=== PATIENT | male | born 1960 | race Caucasian/White ===

== ENCOUNTER → 2020-10-06 13:00 | Outpatient (CLI) | payer OTHER, SELFPAY ==
--- NOTE | ~2020-10-06 | XR_ITS ---
EXAMINATION: XR knee LT 3V DATE: 10/06/2020 13:25 INDICATION: Left knee pain. TECHNIQUE: 3 views of left knee standing were obtained. COMPARISON: None. FINDINGS: Bone alignment is normal. No fracture. There is moderate osteoarthritis of medial compartme nt and mild osteoarthritis of lateral and patellofemoral compartments. No knee joint effusion. IMPRESSION: 1. Moderate left knee osteoarthritis. Reviewed, dictated and finalized at location B.
--- NOTE | ~2020-10-06 | XR_ITS ---
EXAMINATION: XR knee RT 3V DATE: 10/06/2020 13:26 INDICATION: Right knee pain. TECHNIQUE: 3 views of right knee standing were obtained. COMPARISON: None. FINDINGS: Bone alignment is normal. No fracture. There is moderate osteoarthritis of medial compartme nt and mild osteoarthritis of lateral and patellofemoral compartments. No knee joint effusion. IMPRESSION: 1. Moderate right knee osteoarthritis. Reviewed, dictated and finalized at location B.
== END ==
PROVIDERS: PCP Family Medicine; Visit Provider Family Medicine
DX: M17.0 Bilateral primary osteoarthritis of knee (principal)
CPT/HCPCS: 73562

== ENCOUNTER 2023-01-29 14:59 | Outpatient (CLI) | payer OTHER, SELFPAY ==
[2023-01-29 16:32] LABS: Basophils Absolute Auto 0.1 K/mm3 (0.0-0.1); Basophils Percent Auto 0.7 % (0.2-1.2); Eosinophils Absolute Auto 0.3 K/mm3 (0-0.3); Eosinophils Percent Auto 2.8 % (0-4.4); Hematocrit 44.1 % (42.0-52.0); Hemoglobin 14.4 g/dL (14.0-18.0); Immature Granulocyte Absolute 0.02 K/mm3 (0.00-0.031); Immature Granulocyte Percent A 0.2 % (0-0.5); Lymphocytes Absolute Auto 2.53 K/mm3 (0.9-3.2); Lymphocytes Percent Auto 28.6 % (18.3-44.2); Mean Corpuscular HGB Conc 32.7 g/dl (32-36); Mean Corpuscular Hemoglobin 31.3 pg (26-34); Mean Corpuscular Volume 95.9 fl (80-100); Mean Platelet Volume 9.6 fl (7.4-10.4); Monocytes Absolute Auto 0.7 K/mm3 (0.1-0.6); Monocytes Percent Auto 7.5 % (2.6-8.5); Neutrophils Absolute Auto 5.3 K/mm3 (1.3-6.7); Neutrophils Percent Auto 60.2 % (45.5-73.1); Platelet Count Result 305 k/mm3 (150-375); Red Cell Distribution Width 12.1 % (11.5-14.5); White Blood Count 8.9 K/mm3 (4.5-10.0)
[2023-01-29 16:49] LABS: Alanine Aminotransferase 20 U/L (6-50); Albumin Level 4.5 g/dL (3.5-5.1); Alkaline Phosphatase 57 U/L (38-126); Anion Gap 4 mmol/L (8-16); Aspartate Amino Transferase 56 U/L (17-59); Bilirubin,Total 0.9 mg/dL (0.2-1.3); Blood Urea Nitrogen 15 mg/dL (9-20); Carbon Dioxide 33 mmol/L (22-30); Chloride 101 mmol/L (98-107); Cholesterol 204 mg/dL (0-200); Estimated Glomerular Filt Rate > 60; Glucose 103 mg/dL (65-110); HDL Direct 47 mg/dL; Potassium 4.5 mmol/L (3.4-5.0); Sodium 138 mmol/L (137-145); Triglycerides 123 mg/dL (<150)
[2023-01-29 16:50] LABS: Appearance Urine Clear (Clear); Bacteria Urine None Seen /hpf; Bilirubin Urine Negative (Negative); Blood Urine Negative (Negative); Color Urine Yellow (Yellow); Glucose Urine UA Negative (Negative); Ketones Urine 1+ mg/dL (Negative); Leukocyte Esterase Ur Trace LEU/UL (Negative); Nitrate Urine Negative (Negative); Non Pathogenic Casts 0-2; Protein Urine Negative (Negative); RBC Urine 0-2 /hpf (0-2); Specific Grav Ur 1.028 (1.001-1.035); Squamous Epithelial Cell Urine None seen /hpf (Few); WBC Urine 0-5 /hpf
[2023-01-29 16:51] LABS: Add Urine Microscopic? YES
[2023-01-29 17:04] LABS: LDL Cholesterol Direct 115 mg/dL
[2023-01-29 17:24] LABS: Thyroid Stimulating Hormone Reflex 0.552 uIU/mL (0.465-4.68)
[2023-01-29 17:59] LABS: Vitamin B12 > 1000.0 pg/mL (239-931)
[2023-01-29 19:16] LABS: Hemoglobin A1C 5.4 % (<5.7)
[2023-01-30 16:39] LABS: Vitamin D 25 Hydroxy 56.1 ng/mL
[2023-01-30 17:40] LABS: Prostate Specific Antigen 1.3 ng/mL (< OR = 4.0)
== END 2023-01-29 15:00 | disposition home or self-care (01) ==
LOC: ANHGOSHLAB 15:00
PROVIDERS: PCP Family Medicine; Visit Provider Family Medicine
DX: Z00.00 Encounter for general adult medical examination without abnormal findings (principal); R20.0 Anesthesia of skin; R20.2 Paresthesia of skin; E78.5 Hyperlipidemia, unspecified; E55.9 Vitamin D deficiency, unspecified; Z12.5 Encounter for screening for malignant neoplasm of prostate; E73.9 Lactose intolerance, unspecified; Z13.29 Encounter for screening for other suspected endocrine disorder; E53.8 Deficiency of other specified B group vitamins; R31.9 Hematuria, unspecified
CPT/HCPCS: 36415; 80053; 80061; 81001; 82306; 82607; 83036; 84153; 84443; 85025; G0103

== ENCOUNTER 2023-02-12 13:52 | Outpatient (CLI) | payer OTHER, SELFPAY ==
--- NOTE | 2023-02-12 14:14 | ECG_ITS ---
Measurements Intervals Dexter Rate: 64 P: 63 [place]: 165 QRS: -27 QRSD: 94 T: 68 QT: 411 QTc: 424 Interpretive Statements SINUS RHYTHM BORDERLINE LEFT AXIS DEVIATION [QRS AXIS < -20] POSSIBLE RIGHT VENTRICULAR CONDUCTION DELAY [RSR (QR) IN V1/V2] NO PREVIOUS ECG AVAILABLE FOR COMPARISON Electronically Signed On 02-12-2023 15:52:17 CDT by Glenna Ames M.D.
== END 2023-02-12 13:53 | disposition home or self-care (01) ==
LOC: ANHLAB 13:55 → ANHCARD 13:58
PROVIDERS: PCP Family Medicine; Referring Provider Podiatrist Foot & Ankle Surgery; Visit Provider Family Medicine
DX: Z01.810 Encounter for preprocedural cardiovascular examination (principal)
CPT/HCPCS: 93005

== ENCOUNTER 2024-02-05 10:36 | Outpatient (CLI) | payer OTHER, SELFPAY ==
[2024-02-05 14:13] LABS: Add Urine Microscopic? NO; Appearance Urine Clear (Clear); Basophils Absolute Auto 0.1 K/mm3 (0.0-0.1); Basophils Percent Auto 0.7 % (0.2-1.2); Bilirubin Urine Negative (Negative); Blood Urine Negative (Negative); Color Urine Yellow (Yellow); Eosinophils Absolute Auto 0.2 K/mm3 (0-0.3); Eosinophils Percent Auto 2.5 % (0-4.4); Glucose Urine UA Negative (Negative); Hemoglobin 14.8 g/dL (14.0-18.0); Immature Granulocyte Absolute 0.02 K/mm3 (0.00-0.031); Immature Granulocyte Percent A 0.3 % (0-0.5); Ketones Urine Negative (Negative); Leukocyte Esterase Ur Negative LEU/UL (Negative); Lymphocytes Absolute Auto 2.55 K/mm3 (0.9-3.2); Lymphocytes Percent Auto 33.2 % (18.3-44.2); Mean Corpuscular HGB Conc 32.2 g/dl (32-36); Mean Corpuscular Volume 96.4 fl (80-100); Mean Platelet Volume 9.8 fl (7.4-10.4); Monocytes Absolute Auto 0.7 K/mm3 (0.1-0.6); Monocytes Percent Auto 9.4 % (2.6-8.5); Neutrophils Absolute Auto 4.2 K/mm3 (1.3-6.7); Neutrophils Percent Auto 53.9 % (45.5-73.1); Nitrate Urine Negative (Negative); Platelet Count Result 311 k/mm3 (150-375); Protein Urine Negative (Negative); Red Blood Count 4.77 M/mm3 (4.6-6.20); Red Cell Distribution Width 12.2 % (11.5-14.5); Specific Grav Ur 1.012 (1.001-1.035); Urobilinogen Urine 0.2 mg/dL (<2.0); White Blood Count 7.7 K/mm3 (4.5-10.0); pH Urine 5.5 (5.0-9.0)
[2024-02-05 14:20] LABS: Alanine Aminotransferase 21 U/L (6-50); Albumin Level 4.6 g/dL (3.5-5.1); Alkaline Phosphatase 65 U/L (38-126); Anion Gap 7 mmol/L (4-12); Aspartate Amino Transferase 65 U/L (17-59); Bilirubin,Total 0.8 mg/dL (0.2-1.3); Blood Urea Nitrogen 20 mg/dL (9-20); Calcium 9.2 mg/dL (8.4-10.2); Carbon Dioxide 32 mmol/L (22-30); Chloride 100 mmol/L (98-107); Cholesterol 214 mg/dL (0-200); Estimated Glomerular Filt Rate > 60; Glucose 104 mg/dL (65-110); HDL Direct 55 mg/dL; Sodium 139 mmol/L (137-145); Triglycerides 92 mg/dL (<150)
[2024-02-05 14:32] LABS: LDL Cholesterol Direct 124 mg/dL
[2024-02-05 14:52] LABS: Vitamin D 25 Hydroxy 55.8 ng/mL
[2024-02-05 15:05] LABS: Thyroid Stimulating Hormone Reflex 0.547 uIU/mL (0.465-4.68)
[2024-02-05 15:22] LABS: Hemoglobin A1C 5.8 % (<5.7)
== END 2024-02-05 10:37 | disposition home or self-care (01) ==
LOC: ANHGOSHLAB 10:37
PROVIDERS: PCP Family Medicine; Visit Provider Family Medicine
DX: E55.9 Vitamin D deficiency, unspecified (principal); R31.9 Hematuria, unspecified; E78.5 Hyperlipidemia, unspecified; Z13.29 Encounter for screening for other suspected endocrine disorder; Z00.00 Encounter for general adult medical examination without abnormal findings; Z79.899 Other long term (current) drug therapy; R73.9 Hyperglycemia, unspecified; E53.8 Deficiency of other specified B group vitamins; Z12.5 Encounter for screening for malignant neoplasm of prostate
CPT/HCPCS: 36415; 80053; 80061; 81003; 82306; 82607; 83036; 84153; 84443; 85025; G0103

== ENCOUNTER 2024-08-05 09:22 | Outpatient (CLI) | payer OTHER, SELFPAY ==
--- OUTSIDE RECORDS SUMMARY | 2024-08-05 10:04 | XMS_ITS | Referral Summary ---
Author [place] [facility] [place] [address] Address [address] [place] [address] Care Team Providers Care Outsewer Name Role Phone Ash Jose MD Primary Care Provider [phone]- [phone] Social History Tobacco Use Types Packs/Day Years Used Date Smoking Tobacco: Never Assessed Sex and Gender Information Value Date Recorded Sex Assigned at Not on file Legal Sex Male 3:04 PM CDT Gender Identity Not on file Sexual Orientation Not on file Plan of Treatment Not on file Insurance Care Teams Outsewer Relationship Specialty Start Date End Date Ash Jose MD [address] [place] [address] PCP - General Family Medicine 11/25/17
--- OUTSIDE RECORDS SUMMARY | 2024-08-05 10:04 | XMS_ITS | Clinical Summary ---
Author Organization [facility] [place] [address] Address [address] [place] [address] Care Team Providers Care Drug Room Clerk Name Role Phone Ash Jose MD Primary Care Provider [phone]- [phone] Social History Tobacco Use Types Packs/Day Years Used Date Smoking Tobacco: Never Assessed Sex and Gender Information Value Date Recorded Sex Assigned at Not on file Legal Sex Male 3:04 PM CDT Gender Identity Not on file Sexual Orientation Not on file Plan of Treatment Not on file Insurance Member Subscriber Plan / Payer (Ef fective 2001-Present) Name:Brannon Walker Member ID:[id number] Relation to Subscriber:Self Name:Brannon Walker Subscriber ID:[id number] Payer ID:[id number] Type:[employer] HMO/PPO Address: [address] [address] Care Teams Drug Room Clerk Relationship Specialty Start Date End Date Ash Jose MD [address] [place] [address] PCP - General Family Medicine 11/25/17
[2024-08-05 19:10] LABS: Alanine Aminotransferase 20 U/L (6-50); Albumin Level 4.5 g/dL (3.5-5.1); Alkaline Phosphatase 52 U/L (38-126); Anion Gap 10 mmol/L (4-12); Aspartate Amino Transferase 35 U/L (17-59); Bilirubin,Total 0.8 mg/dL (0.2-1.3); Blood Urea Nitrogen 14 mg/dL (9-20); Calcium 9.2 mg/dL (8.4-10.2); Carbon Dioxide 29 mmol/L (22-30); Chloride 102 mmol/L (98-107); Estimated Glomerular Filt Rate > 60; Glucose 96 mg/dL (65-110); Potassium 5.2 mmol/L (3.4-5.0); Sodium 141 mmol/L (137-145)
[2024-08-05 20:55] LABS: Hemoglobin A1C 5.5 % (<5.7)
== END 2024-08-05 09:23 | disposition home or self-care (01) ==
LOC: ANHGOSHLAB 09:23
PROVIDERS: PCP Family Medicine; Visit Provider Family Medicine
DX: R74.01 Elevation of levels of liver transaminase levels (principal); R73.03 Prediabetes
CPT/HCPCS: 36415; 80053; 83036

== ENCOUNTER 2024-11-16 09:12 | Outpatient (CLI) | payer OTHER, SELFPAY ==
--- NOTE | ~2024-11-16 | XR_ITS ---
Right Knee Technique: AP, lateral, and sunrise views were obtained. Clinical History: Pain Findings: No fracture or dislocation is seen. Osseous alignment is anatomic. There is moderate degene rative change of the medial compartment. There is minimal degenerative change of the lateral and tineo llofemoral compartments. Soft tissues are unremarkable. No joint effusion is seen. Impression: Degenerative changes, as detailed above. Reviewed, dictated and finalized at location M. Impression: Degenerative changes, as detailed above.
--- NOTE | ~2024-11-16 | XR_ITS ---
Left Knee Technique: AP, lateral, and sunrise views were obtained. Clinical History: Pain Findings: No fracture or dislocation is seen. There is moderate degenerative change of the medial com partment, with probable medial compartment narrowing. There is mild degenerative change of the latera l and patellofemoral compartments.. Soft tissues are unremarkable. No joint effusion is seen. Impression: Degenerative changes, as detailed above. Reviewed, dictated and finalized at location M. Impression: Degenerative changes, as detailed above.
== END 2024-11-16 09:13 | disposition home or self-care (01) ==
LOC: GOSHIMG 09:12
PROVIDERS: PCP Orthopaedic Surgery; Visit Provider Family Medicine
DX: M17.0 Bilateral primary osteoarthritis of knee (principal)
CPT/HCPCS: 73564

== ENCOUNTER 2024-12-17 10:00 | Outpatient (RCR) | payer OTHER, SELFPAY ==
--- NOTE | 2024-11-19 14:15 | OPREHPOC ---
Outpatient Therapy Plan of Care This is a Multidisciplinary Plan of Care that may contain components documented by all disciplines (PT, OT, and ST.) PT Problem 1 PT Problem #1 Knowledge Deficit PT Goal 1 Goal / Goal Update 1. Patient to demonstrate independence with HEP for improved self-reliance of symptom management. Target Visit 5 PT Problem 2 PT Problem #2 Pain PT Goal 1 Goal / Goal Update 1. Patient to decrease subjective reports of pain to <2/10 for improved ADL tolerance. 2. Pt will report reduce morning stiffness pain Target Visit 5 PT Problem 3 PT Problem #3 Impaired Flexibility PT Goal 1 Goal / Goal Update 1. Pt will improve LE flexibility seen in an increase in hamstring length and obers test Target Visit 5 PT Problem 4 PT Problem #4 Impaired Strength PT Goal 1 Goal / Goal Update 1. - Patient will demonstrate improved strength of the bilateral hip abductors and extensors to 4+/5 on manual muscle testing in order to improve gait stability and stair negotiation. Target Visit 5
--- NOTE | 2024-11-19 14:15 | PTOPEVAL1 ---
Assessment and note entered by Terry Parsons PT Evaluation Information Assessment Status Evaluation Diagnosis Kaiser knee pain ICD-10 Condition Codes (PT) Pain in right knee M25.561,Pain in left knee M25. 562 Onset 1 month ago Subjective Information Pt states his knee stated hurting about a month ago R worse than L. Pt notes he saw his primary care and x rays showed Kaiser knee OA. Pt notes he has increased morning pain and stiffness stating his knee feels unstable at times. Pt enjoys to walk and is currently limited by knee pain. Pt would like to get started with a home exercise program. Reported Pain Level Pain Score 4: Self Report Assessment PT Clinical Summary Patient presents to physical therapy with a primary issue of increased kaiser knee pain for the last month due to knee OA. Patient demonstrates hip weakness, increased pain, decreased mobility affecting his ability to walk his dog, gait deficit, and decreased flexibility in [facility] LE that limit their ability to perform activities of daily living and functional movements. Patient will benefit from skilled physical therapy to address the above listed deficits and return to prior level of function. Home exercise program instructed and written handout provided. Plan of Care Interventions Gait Training,Hot Pack/Cold Pack,Manual Therapy, Neuro Re-education,Therapeutic Activities, Therapeutic Exercise,Other PT Services Indicated Yes Treatment Frequency and 1x week 5 visits Duration These treatments will address the objective and functional deficits as defined above. The patient will be advanced safely and appropriately in order for the patient to progress towards his/her prior level of function. Additional exercises will be introduced and as well as a comprehensive home exercise program upon discharge, if needed, ?to ensure carryover of functional gains achieved in the clinic. This treatment plan has been reviewed and agreement upon by the patient.
--- NOTE | 2024-12-17 10:51 | PTOPDC ---
Assessment and note entered by Terry Parsons, PT Evaluation Information Assessment Status Discharge Diagnosis Kaiser knee pain ICD-10 Condition Codes (PT) Pain in right knee M25.561,Pain in left knee M25. 562 Onset 1 month ago Subjective Information Pt states he feels about 50% better overall and notes intermittent when changing positions but is less constant. Pt notes he continues to have some pain and stiffness in his knees. Pt reports he wants to continue his stretching exercises at home Reported Pain Level Pain Score 2: Self Report Assessment PT Clinical Summary Patient's Kaiser knee pain has improved overall as evidenced by advancements in decreased symptoms, and increased mobility, strength, and overall functional use of the lower extremities. Plan of Care PT Services Indicated No
== END 2024-12-17 14:15 | disposition home or self-care (01) ==
LOC: ANHGOSHPT 10:00
PROVIDERS: PCP Family Medicine; Visit Provider Family Medicine
DX: M25.561 Pain in right knee (principal); M25.562 Pain in left knee; G89.29 Other chronic pain
CPT/HCPCS: 97110; 97112; 97161

== ENCOUNTER 2025-02-05 07:51 | Outpatient (CLI) | payer OTHER, SELFPAY ==
--- OUTSIDE RECORDS SUMMARY | 2025-02-05 07:54 | XMS_ITS | Clinical Summary ---
Author Organization [facility] [place] [address] Address [address] [place] [address] Care Team Providers Care Biofuels Operations Manager Name Role Phone Ash Jose MD Primary Care Provider [phone]- [phone] Social History Tobacco Use Types Packs/Day Years Used Date Smoking Tobacco: Never Assessed Sex and Gender Information Value Date Recorded Sex Assigned at Not on file Legal Sex Male 3:04 PM CDT Gender Identity Not on file Sexual Orientation Not on file Plan of Treatment Not on file Insurance Care Teams Biofuels Operations Manager Relationship Specialty Start Date End Date Ash Jose MD [address] [place] [address] PCP - General Family Medicine 11/25/17
[2025-02-05 18:06] LABS: Hematocrit 44.2 % (42.0-52.0); Hemoglobin 14.2 g/dL (14.0-18.0); Immature Granulocyte Percent A 0.1 % (0-0.5); Lymphocytes Absolute Auto 2.11 K/mm3 (0.9-3.2); Mean Corpuscular HGB Conc 32.1 g/dl (32-36); Mean Corpuscular Hemoglobin 30.5 pg (26-34); Mean Corpuscular Volume 95.1 fl (80-100); Nucleated Red Blood Cells Absolute Auto 0.000 K/mm3 (0.0-0.012); Nucleated Red Blood Cells Perc 0.0 % (0.0-0.2); Platelet Count Result 308 k/mm3 (150-375); Red Blood Count 4.65 M/mm3 (4.6-6.20); White Blood Count 6.9 K/mm3 (4.5-10.0)
[2025-02-05 18:14] LABS: Hemoglobin A1C 5.4 % (<5.7)
[2025-02-05 18:24] LABS: Alanine Aminotransferase 18 U/L (6-50); Albumin Level 4.5 g/dL (3.5-5.1); Alkaline Phosphatase 53 U/L (38-126); Anion Gap 7 mmol/L (4-12); Aspartate Amino Transferase 28 U/L (17-59); Bilirubin,Total 0.9 mg/dL (0.2-1.3); Blood Urea Nitrogen 13 mg/dL (9-20); Calcium 9.2 mg/dL (8.4-10.2); Carbon Dioxide 30 mmol/L (22-30); Chloride 102 mmol/L (98-107); Cholesterol 211 mg/dL (0-200); Estimated Glomerular Filt Rate > 60; Glucose 92 mg/dL (65-110); HDL Direct 47 mg/dL; Potassium 4.6 mmol/L (3.4-5.0); Sodium 139 mmol/L (137-145); Total Protein 7.7 g/dL (6.3-8.2); Triglycerides 102 mg/dL (<150)
[2025-02-05 18:44] LABS: Thyroid Stimulating Hormone Reflex 0.565 uIU/mL (0.465-4.68)
[2025-02-05 19:01] LABS: Prostate Specific Antigen 0.9 ng/mL (< OR = 4.0)
[2025-02-05 19:20] LABS: Vitamin B12 846.0 pg/mL (239-931)
== END 2025-02-05 07:52 | disposition home or self-care (01) ==
LOC: ANHGOSHLAB 07:52
PROVIDERS: PCP Family Medicine; Visit Provider Family Medicine
DX: Z00.00 Encounter for general adult medical examination without abnormal findings (principal); E53.8 Deficiency of other specified B group vitamins; I10 Essential (primary) hypertension; Z79.899 Other long term (current) drug therapy; R73.03 Prediabetes; Z13.29 Encounter for screening for other suspected endocrine disorder; E55.9 Vitamin D deficiency, unspecified; E78.5 Hyperlipidemia, unspecified; Z12.5 Encounter for screening for malignant neoplasm of prostate
CPT/HCPCS: 36415; 80053; 80061; 82306; 82607; 83036; 84153; 84443; 85025; G0103